=== PATIENT | male | born 1975 | race Caucasian/White ===

== ENCOUNTER → 2023-08-11 | Outpatient (CLI) | payer SELFPAY ==
--- NOTE | 2023-08-11 08:19 | ECHOD_ITS ---
Reason For Study: Chest Pain Procedure This was a 2D Doppler, Color Flow transthoracic echocardiogram. Exam performed in department. Left Ventricle Normal LV size. The estimated ejection fraction is 55 %. No evidence for diastolic dysfunction. No regional wall motion abnormalities noted. Right Ventricle Normal RV size. Normal systolic function. Atria The left and right atria are normal. No doppler evidence for ASD. Mitral Valve There is no mitral valve stenosis. No mitral valve insufficiency. Tricuspid Valve There is no tricuspid stenosis. Trivial tricuspid valve insufficiency. Pulmonary artery systolic pressure is 20 mmHg. Aortic Valve Trisinus/trileaflet aortic valve. There is no aortic stenosis. No aortic valve insufficiency. Pulmonic Valve There is no pulmonic valvular stenosis. No pulmonic valve insufficiency. Great Vessels Normal aortic root. MMode/2D Measurements & Calculations LVIDd: 4.5 cm IVSd: 0.84 cm Ao root diam: 3.7 cm LVIDs: 3.3 cm LVPWd: 0.83 cm LA dimension: 2.9 cm RVDd: 4.0 cm FS: 27.3 % LAV(MOD-bp): 43.1 ml LVAd ap4: 26.0 cm2 SV(MOD-sp4): 41.3 ml LAV(MOD-bp) Indexed: 23.6 ml/m2 LVLd ap4: 7.4 cm LAV(MOD-sp2): 49.0 ml EDV(MOD-sp4): 75.1 ml LAV(MOD-sp4): 34.4 ml EDV(sp4-el): 78.0 ml LVAs ap4: 15.3 cm2 LVLs ap4: 5.9 cm ESV(MOD-sp4): 33.8 ml ESV(sp4-el): 33.5 ml EF(MOD-sp4): 55.0 % EF(sp4-el): 57.0 % SV(sp4-el): 44.5 ml LA A4 area: 14.3 cm2 RA A4 area: 11.7 cm2 TAPSE: 2.0 cm Time Measurements MV dec time: 0.13 sec Doppler Measurements & Calculations MV E max jeff: 69.9 cm/sec Lat Peak E' Jeff: 13.7 cm/sec Med Peak E' Jeff: 14.5 cm/sec MV A max jeff: 71.1 cm/sec E/E' lat: 5.1 E/E' med: 4.8 MV E/A: 0.98 MV V2 max: 84.8 cm/sec MV P1/2t max jeff: 78.4 cm/sec Ao V2 max: 99.2 cm/sec MV max P.9 mmHg MV P1/2t: 49.7 msec Ao max P.9 mmHg MV V2 mean: 49.3 cm/sec MV dec slope: 462.1 cm/sec2 Ao V2 mean: 69.4 cm/sec MV mean P.1 mmHg Ao mean P.2 mmHg MV V2 VTI: 27.6 cm MVA(P1/2t): 4.4 cm2 Ao V2 VTI: 22.3 cm AV (velocity ratio): 0.93 LV V1 max: 95.3 cm/sec MR max jeff: 154.9 cm/sec PA V2 max: 114.5 cm/sec LV V1 max P.6 mmHg MR max P.6 mmHg LV V1 mean P.0 mmHg LV V1 mean: 66.4 cm/sec LV V1 VTI: 20.8 cm TR max jeff: 209.1 cm/sec TR max P.5 mmHg ECHO/Echo Complete Interpretation Summary The estimated ejection fraction is 55 %. No evidence for diastolic dysfunction. Ordering Physician: Kyle Denis Performed By: Daniel Brand RCS
== END | disposition home or self-care (01) ==
PROVIDERS: PCP Family Medicine; Visit Provider Family Medicine
DX: R07.9 Chest pain, unspecified (principal)
CPT/HCPCS: 93306